=== PATIENT | female | born 1995 | race Caucasian/White ===

== ENCOUNTER 2016-11-04 14:28 | Emergency (ER) | payer OTHER ==
[2016-11-04 14:55] LABS: URINE BILIRUBIN 2+ (NEGATIVE); URINE BLOOD NEGATIVE (NEGATIVE); URINE GLUCOSE (UA) NEGATIVE (NEGATIVE); URINE LEUKOCYTE ESTERASE 1+ (NEGATIVE); URINE NITRITE POSITIVE (NEGATIVE); URINE PROTEIN 1+ (NEGATIVE)
[2016-11-04 14:58] LABS: HCG,QUALITATIVE URINE NEGATIVE
[2016-11-04 14:59] LABS: URINE APPEARANCE HAZY; URINE COLOR AMBER; URINE UROBILINOGEN 8 mg/dL (0-1 mg/dl)
[2016-11-04 15:15] LABS: URINE AMORPHOUS SEDIMENT MODERATE; URINE BACTERIA 3+; URINE RBC 0-2 /hpf
--- NOTE | 2016-11-04 16:13 | RAD ---
Exam: Two-view chest COMPARISON: None INDICATION: Fever and chest pressure. FINDINGS: PA and lateral views of the chest were obtained. Cardiac silhouette is within normal limits. Lungs are normally inflated. There is minor diffuse coarsening of bronchovascular markings. There is no focal airspace disease or pleural effusion. Bones of the chest wall within normal limits. IMPRESSION: No acute pulmonary process.
== END 2016-11-04 16:31 | disposition home or self-care (01) ==
LOC: ED 14:28
DX: N39.0 Urinary tract infection, site not specified (principal); R07.9 Chest pain, unspecified; R50.9 Fever, unspecified